=== PATIENT | female | born 1990 | race American Indian/Alaskan Native ===

== ENCOUNTER 2019-07-31 15:11 | Emergency (ER) | payer SELFPAY ==
[2019-07-31 15:37] VITALS: BP 115/89
--- NOTE | 2019-07-31 15:55 | Event Note ---
ED Screening Note ED Screening Note: states that she has tingling in her arms pt is tearful and appears to be anxious and is breathing hard pt states she has been having pressure in the chest states she also has LUQ discomfort states she was diagnosed with pleurisy and gastritis no n/v/d no fever states she has been to two emergency rooms within the last 24 hours states she had a CT abd pelvis, CXR at [facility] which where normal per pt she states that she went to [facility] and states she had another CT scan with IV contrast and states that it was from the neck to the pelvis which just showed a thyroid cyst per pt and they diagnosed her with pleurisy she states that the chest ct and second abdomen ct was normal per pt
--- NOTE | 2019-07-31 15:59 | Emergency Department Report ---
Chief Complaint: Chest Pain Stated Complaint: CHEST PAIN, Time Seen by Provider: 07/31/19 15:34 - HPI History of Present Illness: pt is a 28 yo female who states that she has tingling in her arms pt is tearful and appears to be anxious and is breathing hard pt states she has been having pressure in the chest states she also has LUQ discomfort states she was diagnosed with pleurisy and gastritis no n/v/d no fever states she has been to two emergency rooms within the last 24 hours states she had a CT abd pelvis, CXR at [facility] which where normal per pt she states that she went to [facility] and states she had another CT scan with IV contrast and states that it was from the neck all the way to the pelvis which just showed a small thyroid cyst per pt and they diagnosed her with pleurisy she states that the chest ct and second abdomen ct was normal per pt Vitals are normal EKG ordered prior to my examination Normal sinus rhythm Normal axis Normal intervals Normal QRS No ST-T changes No STEMI On exam: Non toxic appearing, no acute distress atraumatic, normocephalic normal appearance of the eyes, PERRL, EOMI, no periorbital edema or ecchymosis moist mucus membranes regular heart rate and rhythm, no gallops, no rubs, no murmurs breath sounds are clear bilaterally, no w/r/r, no stridor, no accessory muscle use, no respiratory distress A&O x4, no focal neuro deficit, neurovascularly intact throughout, no pedal edema skin is warm, dry, intact After speaking with patient she was able to calm down and was feeling better Breath sounds are clear bilaterally no wheezing, rhonchi, rales EKG is within normal limits Patient has already had extensive work-ups by other emergency rooms in the last 24 hours She has already had the emergencies ruled out She was ruled out for aortic dissection, ACS, PE by other hospitals It appears that patient could be having symptoms of both gastritis and pleuritis, and also appears to have underlying anxiety She denies any SI or HI Patient has already been referred to GI Discussed with patient to take medications that she was already prescribed during her other emergency room visits Patient will be referred to primary care, cardiology, GI, and the [facility] advised pt please follow up with GI doctor. follow up with a manager metrology. follow up with a primary care doctor. return to the emergency room for any new or worsening symptoms. please stop smoking. please continue taking the medications you were prescribed during your previous visits. Medical screening examination performed and there is no threat to life or limb at this time - Exam Vital Signs: Vital Signs 07/31/19 07/31/19 15:35 15:41 Temperature 97.8 F Pulse Rate 92 H 104 H Respiratory 18 20 Rate Blood Pressure 115/89 O2 Sat by Pulse 99 100 Oximetry MSE screening note: Focused history and physical exam performed. ED Disposition for MSE Clinical Impression: Encounter for medical screening examination Disposition: MED SCREENING EXAM-LEFT Is pt being admited?: No Does the pt Need Aspirin: No Condition: Stable Instructions: Pleurisy (ED), Gastritis (ED), Diet for Ulcers and Gastritis (ED), Anxiety (ED) Additional Instructions: please follow up with GI doctor. follow up with a manager metrology. follow up with a primary care doctor. return to the emergency room for any new or worsening symptoms. please stop smoking. please continue taking the medications you were prescribed during your previous visits. Referrals: [facility] [Provider Group] - 2-3 Days AMAN WRIGHT MD [Staff Physician] - 2-3 Days [facility] [Outside] - 2-3 Days your, primary care doctor [Other] - 2-3 Days Time of Disposition: 15:56 Print Language: [place]OT[place]
== END 2019-07-31 16:51 | disposition left against medical advice (07) ==
LOC: ED 15:11
DX: K29.70 Gastritis, unspecified, without bleeding (principal); R09.1 Pleurisy; Z00.00 Encounter for general adult medical examination without abnormal findings; Z53.21 Procedure and treatment not carried out due to patient leaving prior to being seen by health care provider
CPT/HCPCS: 93005